=== PATIENT | female | born 1945 | race Caucasian/White ===

== ENCOUNTER → 2016-11-30 | Outpatient (CLI) | payer OTHER, MEDICAID | LOC: FIMAGING 11:05 | PROVIDERS: ATTEND Physician Assistant | DX: R10.9 Unspecified abdominal pain (principal) ==

== ENCOUNTER → 2017-06-18 | Outpatient (CLI) | payer OTHER, MEDICAID | LOC: FIMAGING 12:48 | PROVIDERS: ATTEND Internal Medicine | DX: M16.12 Unilateral primary osteoarthritis, left hip (principal) ==

== ENCOUNTER → 2017-07-29 | Outpatient (CLI) | payer OTHER, MEDICAID | LOC: FIMAGING 10:58 | PROVIDERS: ATTEND Nurse Practitioner Adult Health | DX: Z01.818 Encounter for other preprocedural examination (principal); J44.9 Chronic obstructive pulmonary disease, unspecified; J45.909 Unspecified asthma, uncomplicated; I10 Essential (primary) hypertension ==

== ENCOUNTER → 2017-07-29 | Outpatient (CLI) | payer OTHER, MEDICAID | LOC: FIMAGING 15:22 | PROVIDERS: ATTEND Orthopaedic Surgery | DX: Z01.818 Encounter for other preprocedural examination (principal); M16.0 Bilateral primary osteoarthritis of hip ==

== ENCOUNTER 2017-07-30 11:09 | Inpatient (IN) | payer OTHER, MEDICAID ==
[2017-08-06] MEDS ORDERED: TRANEXAMIC ACID 1,000 MG in NS 100 ML IV ONE (06:00)
[2017-08-06] MEDS ORDERED: ROPIVACAINE 0.2% 80 MG, EPINEPHrine 0.2 MG, KETOROLAC TROMETHAMINE 30 MG in SYRINGE 0 ML IU ONE (06:00)
[2017-08-06] MEDS ORDERED: ceFAZolin 1 GM/5 ML SYR ONE (10:23)
[2017-08-06] MEDS ORDERED: FAMOTIDINE 20 MG TAB PO ONE (13:08)
[2017-08-06] MEDS ORDERED: POVIDONE-IODINE 20 ML in SODIUM CL IRRIG SOLUTION 500 ML IRR ONE (13:08)
[2017-08-06] MEDS ORDERED: DEXAMETHASONE 4 MG/ML VIAL IVP ONE (13:08)
[2017-08-06] MEDS ORDERED: ceFAZolin 2 GM/SWFI 2 GM/20 ML SYR IVP ONE (13:08)
[2017-08-06] MEDS ORDERED: ACETAMINOPHEN 325 MG TAB PO ONE (13:08)
[2017-08-06] MEDS ORDERED: LIDOCAINE 1% 2 ML INJ ID PRN (13:19)
[2017-08-06] MEDS ORDERED: LR 1,000 ML IV ONE (13:19)
--- NOTE | 2017-08-06 14:04 | PDHPUP ---
History & Physical Update H&P update statement: This history and physical update is based on an assessment of the patient which was completed after admission or registration (within 24 hours), but prior to the surgery/procedure. H&P update: H&P reviewed & patient examined, no change in patient's condition since H&P completed
[2017-08-06] MEDS ORDERED: MIDAZOLAM 2 MG/2 ML VIAL IVP ONE (14:29)
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
[2017-08-06] MEDS ORDERED: PROPOFOL/EMULSION 500 MG/50 ML BOTTLE IV ONE ×3 (14:34→18:14)
[2017-08-06] MEDS ORDERED: LIDOCAINE 2% 5 ML SDV ONE (14:35)
[2017-08-06] MEDS ORDERED: BUPIVACAINE/EPI 0.5% 30 ML SDV ONE (15:20)
[2017-08-06] MEDS ORDERED: NALOXONE HCL 0.4 MG/ML INJ IVP PRN (15:22)
[2017-08-06] MEDS ORDERED: ONDANSETRON 4 MG/2 ML VIAL IVP PRN ×2 (15:22→18:53)
[2017-08-06] MEDS ORDERED: PHENYLEPHRINE HCL 100 MCG/ML SYR ONE (16:16)
[2017-08-06] MEDS ORDERED: fentaNYL 100 MCG/2 ML INJ ONE ×2 (18:14→18:53)
[2017-08-06] MEDS ORDERED: MEPERIDINE 25 MG/ML SYR IVP ONE (18:45)
--- NOTE | 2017-08-06 18:45 | POSTANESTH ---
Post Anesthetic Evaluation Cardiovascular Status: Normal, Stable Respiratory Status: Normal, Stable Level of Consciousness/Mental Status: Can Participate in Eval Pain Control: Adequate, Prn Tx Ordered Nausea/Vomiting Control: Adequate, Prn Tx Ordered Complications Possibly Related to Anesthesia: None Noted
[2017-08-06] MEDS ORDERED: MAGNESIUM HYDROXIDE 30 ML UDCUP PO PRN (18:53)
[2017-08-06] MEDS ORDERED: TEMAZEPAM 15 MG CAP PO PRN (18:53)
[2017-08-06] MEDS ORDERED: PROMETHAZINE HCL 25 MG SUPPR PR PRN (18:53)
[2017-08-06] MEDS ORDERED: METOCLOPRAMIDE 10 MG/2 ML VIAL IVP PRN (18:53)
[2017-08-06] MEDS ORDERED: HYDROmorphONE/DILAUDID 1 MG/ML INJ ONE (18:53)
[2017-08-06] MEDS ORDERED: PROMETHAZINE HCL 25 MG/ML INJ IVP PRN (18:53)
[2017-08-06] MEDS ORDERED: MEPERIDINE 25 MG/ML SYR ONE (18:53)
[2017-08-06] MEDS ORDERED: BISACODYL 10 MG SUPP PR PRN (18:53)
[2017-08-06] MEDS ORDERED: DIPHENOXYLATE/ATROPINE LOMOTIL 1 TAB PO PRN (18:53)
[2017-08-06] MEDS ORDERED: diphenhydrAMINE 25 MG CAP PO PRN (18:53)
[2017-08-06] MEDS ORDERED: LACTULOSE 20 GM/30 ML UDCUP PO PRN (18:53)
[2017-08-06] MEDS ORDERED: CYCLOBENZAPRINE 10 MG TAB PO PRN (18:53)
[2017-08-06] MEDS ORDERED: ONDANSETRON DISINTEGRATING 4 MG TAB PO PRN (18:53)
[2017-08-06] MEDS ORDERED: POLYETHYLENE GLYCOL 3350 17 GM PKT PO PRN (18:53)
--- NOTE | 2017-08-06 18:53 | POSTOPPROG ---
Post Op Note Date of Operation: 08/06/17 Surgeon: Alonzo Alford Welder Gas: Stevie Lara Anesthesiologist: Micheal Yang Pre-op Diagnosis: Left hip DJD, Gluteus medius tear Post-op Diagnosis: same Procedure: Left posterior approach PARDEEP PABLO with gluteus medius repair Inf/Abcess present in the surg proc area at time of surgery?: No EBL: 100-500 Complications: none Drains: Hemovac
[2017-08-06] MEDS: fentaNYL 100 MCG/2 ML INJ IVP PRN ×2 (18:57→19:44)
[2017-08-06] MEDS ORDERED: ALPRAZolam 0.5 MG TAB PO PRN (18:58)
[2017-08-06] MEDS ORDERED: LR 1,000 ML IV SCH (19:00)
[2017-08-06] MEDS: HYDROmorphONE/DILAUDID 1 MG/ML INJ IVP PRN ×3 (19:06→20:04)
[2017-08-06] MEDS: SENNOSIDES/DOCUSATE SODIUM TAB PO SCH (21:32)
[2017-08-06] MEDS: oxyCODONE IR 5 MG TAB PO PRN (21:33)
[2017-08-06] MEDS: FAMOTIDINE 20 MG TAB PO SCH (21:33)
[2017-08-06] MEDS: ACETAMINOPHEN 325 MG TAB PO SCH (23:27)
[2017-08-06] MEDS: ceFAZolin 2 GM/DEXTROSE 100 ML IV SCH (23:28)
[2017-08-07] MEDS: oxyCODONE IR 5 MG TAB PO PRN ×4 (03:49→15:42)
--- NOTE | 2017-08-07 05:03 | GOP ---
[f rep st] OPERATIVE REPORT DATE OF OPERATION: 08/06/2017 SURGEON: Alonzo Alford MD ENGINEER CONDUCTOR: Stevie Lara CFA. Road Train Driver was required due to the complexity of the case and the patient's condition for positioning, prepping, draping, retraction, and closure. ANESTHESIA: Spinal. PREOPERATIVE DIAGNOSIS: Left hip osteoarthritis. POSTOPERATIVE DIAGNOSIS: Left hip osteoarthritis. PROCEDURE PERFORMED: Left posterior approach to total hip arthroplasty with Uriel robot guidance and gluteus medius repair. FINDINGS: SPECIMENS: None. ESTIMATED BLOOD LOSS: 400 cc. INDICATIONS: Hip osteoarthritis. After a discussion involving available approaches, the patient elected Uriel robotic-assisted hip replacement through a posterior approach and was aware of a possible gluteus medius repair and restrictions afterward. The patient verbalized understanding of the risks and benefits of the procedure and signed informed consent prior to the procedure. DESCRIPTION OF PROCEDURE: The patient was seen in the holding area. Operative site was signed. The patient was taken to the operating room. Smooth induction of anesthesia. She was placed in a lateral decubitus position, affected hip was facing up, using a peg board and axillary roll, the affected hip was prepped and draped in the usual sterile fashion. Operative site was confirmed by signature. Operative time-out performed. Allergies reviewed and antibiotics administered. Through a percutaneous approach over the iliac crest, 3 pins were placed in the ilium between the inner and outer talus. The pelvis array was attached and registered. A longitudinal incision was made, centered over the posterior third of the greater trochanter. This was carried down through the subcutaneous tissue to identify the fascia papa, which was incised in line with the incision, and gluteus gavin was bluntly split. The trochanteric bursa was then taken down using Bovie. The full thickness gluteus medius tear was identified. The short external rotators were put on stretch and short external rotators and T-shaped capsulotomy were taken in layers from their insertion on the femur and tagged with #2 Ethibond and FiberWire. Quadratus femoris was partially released. Guidance of the Health Plotter robot templated neck cut was made. The head was excised. Acetabulum was exposed in the standard fashion. The labrum was sharply excised. The ligamentum teres and acetabular fossa were excised using Bovie. The transverse acetabular ligament was also partially excised. Pelvic checkpoint was attached and the acetabulum was registered using the Uriel robotic arm. Sequential reaming was performed on templated positioning. The appropriate sized implant was then impacted into place with the robotic arm to guide version and inclination and seemed to have excellent secure fit. The hole cover was screwed into place. The cup was irrigated and dried, and the liner was locked into place. The femur was then exposed in standard fashion. Excess soft tissue was removed from the piriformis fossa using Bovie and excess neck was removed using box osteotomes. Sequential broaching was performed up to the desired sized broach, which had good fit and fill. A trial neck and stem were attached and anteversion, length, and offset were calculated using the Uriel system and seemed to be as planned. Trial femoral components were then removed. Femoral broach was reinserted. Trial neck and head were attached. The hip was relocated and combined version, length, and offset were again calculated using the Health Plotter robot. Again, to be seen as planned, the hip was taken through a range of motion and seemed to be stable in flexion, internal rotation, adduction , as well as extension external rotation. Trial components were removed from the femur, instead implant was impacted into place. The Shanice was cleaned and dried, the head was impacted onto the Shanice, and the wound was copiously irrigated with sterile solution and pulse lavage, including a cup, and the hip was relocated, once again taken through range of motion, and seemed to be stable in all above motions. The array pins, screws, and checkpoints were removed. Capsule and external rotators repaired through 2 drill holes in the greater trochanter, quadratus femoris. Next, the gluteus medius was addressed. A MiTurno TPS round bur was used to decorticate the bulb area of the greater trochanter. Two commercial real estate assistant holes were placed into the greater trochanter, aiming away from the femoral stem using an awl and two 4.75 Arthrex SwiveLock with fiber tape were placed into the greater trochanter. The #2 FiberWire included in the SwiveLock and the tapes were then placed through each leaflet of the U- shaped tear of the gluteus medius and sequentially tied down. Good and stable reduction was achieved. The soft tissues were infiltrated with a cocktail of 50 cc of 0.25% Marcaine with epinephrine, saline, Toradol. A drain was then placed, exiting distally from beneath the fascia papa. The wound was then closed in layers with #2 PDS closed suture in the fascia paap, 0 PDS closed suture in the deep subcutaneous fat, and 3-0 Monocryl suture in the dermis. Dermabond and Steri-Strips were then applied, as well as a Mepilex silver line dressing. Leg was then placed into a hip abduction pillow and a hip abduction brace to protect the gluteus medius repair. The patient was then safely awakened and taken to the recovery room in stable condition. All critical portions of the procedure were performed by myself, Dr. Alford, this operative note was created by myself, Dr. Alford, and I was immediately available for emergency cross-coverage at all times. DRAINS: One Hemovac. COMPLICATIONS: None. IMPLANTS: Shanice 52 mm cup, Accolade II stem size 5, offset 127 degrees, and 32mm, -4 ceramic head, polyethylene liner, also Arthrex 4.75 mm SwiveLock x2 with fiber tape. /[id number]/MODL MTDD
[2017-08-07 05:08] LABS: HEMATOCRIT 37.6 % (38.0-47.0); HEMOGLOBIN 12.7 g/dL (12.6-16.3)
[2017-08-07] MEDS: ACETAMINOPHEN 325 MG TAB PO SCH ×2 (06:16→11:55)
[2017-08-07] MEDS: ceFAZolin 2 GM/DEXTROSE 100 ML IV SCH (06:17)
[2017-08-07] MEDS: FAMOTIDINE 20 MG TAB PO SCH (08:19)
[2017-08-07] MEDS: SENNOSIDES/DOCUSATE SODIUM TAB PO SCH (08:22)
[2017-08-07] MEDS ORDERED: LISINOPRIL 5 MG TAB PO SCH (09:00)
[2017-08-07] MEDS ORDERED: ENOXAPARIN 40 MG/0.4 ML SYR SC SCH (09:00)
[2017-08-07] MEDS ORDERED: HYDROCHLOROTHIAZIDE 25 MG TAB PO SCH (09:00)
--- NOTE | 2017-08-07 09:03 | SOAPPROG ---
SOAP Progress Note Assessment/Plan: Assessment:71F POD#1 s/p L hip posterior approach PARDEEP PABLO with gluteus medius repair. Plan: - 20lb Footflat WB x6wks in hip brace. Up as tolerated with assistance, PT/OT - Lovenox for DVT prophylaxis - IS 10x/hr - Pain control upon d/c per primary MD - on chronic oxy - Medically stable for d/c today but will require acute rehab vs home health/PT - Dispo pending. 08/07/17 09:00 Subjective: No acute events overnight. Pain controlled and improving. Denies f/c/cp/sob/n/v/ numbness/tingling. Up with assistance last night. Objective: Vital Signs Temp Pulse Resp BP Pulse Ox 36.3 C 72 16 119/84 H 91 L 08/07/17 08:00 08/07/17 08:00 08/07/17 08:00 08/07/17 08:00 08/07/17 08:00 Laboratory Results 08/07/17 04:47 08/06/17 08/07/17 08/08/17 05:59 05:59 05:59 Intake Total 1860 600 Output Total 1140 Balance 720 600 AAOx3,NAD Easy non-labored breathing LLE: dressing c/d/i Drain removed Minimal swelling calf soft/nontender SILT L3-S1 Motor intact EHL/FHL/TA/GSC 2+DP/PT, BCR - Time Spent With Patient Time Spent With Patient: 15mins - Pending Discharge Pending Discharge Within 24 Hours: Yes Pending Discharge Within 48 Hours: Yes Pending Discharge Date: 08/08/17 Pending Discharge Time: 11:00 ICD10 Worksheet Patient Problems: Problems Problem Status Onset Osteoarthritis of left hip Acute
--- NOTE | 2017-08-07 15:04 | PDIAF ---
- Diagnosis Code Status: Full Code - Medication Management Discharge Medications: Medications to Continue on Transfer ALPRAZolam [Xanax 0.5 MG (*)] 0.5 mg PO TID PRN 07/15/17 [Last Taken 08/05/17] Fluticasone Nasal [Flonase Nasal [place]] 1 sprays NASAL DAILY PRN 07/15/17 [Last Taken 08/06/17 08:00] Hydrochlorothiazide [HCTZ (*)] 25 mg PO DAILY 07/15/17 [Last Taken 08/05/17] Lisinopril [Zestril 5 mg (*)] 5 mg PO DAILY 07/15/17 [Last Taken 08/05/17] diphenhydrAMINE [Benadryl 25 MG (*)] 50 mg PO HS 07/15/17 [Last Taken 08/05/17] oxyCODONE IR [Oxycodone Ir (*)] 10 mg PO Q6HRS PRN 07/15/17 [Last Taken 10:30] traZODone [traZODone 150MG (*)] 300 mg PO HS 07/15/17 [Last Taken 08/05/17] Acetaminophen [Tylenol 325mg (*)] 650 mg PO Q6HRS tab 08/07/17 [Last Taken Unknown] Beclomethasone Qvar 80 [Qvar 80 (*)] 2 puffs IH DAILY 08/07/17 [Last Taken 08/07] Enoxaparin [Lovenox 40 MG (*)] 40 mg SC DAILY #14 syr 08/07/17 [Last Taken Unknown] Sennosides/Docusate Sodium [Senokot-S] 1 - 2 tab PO BID tab 08/07/17 [Last Taken Unknown] Discharge Medications: Refer to the Discharge Home Medication list for PRN reason. - Orders Services needed: Physical Therapy, Occupational Therapy Diet Recommendation: no restrictions on diet Diet Texture: Regular Texture Diet Activity/Weight Bearing Restrictions: 20lb foot flat WB x6wk with hip brace Additional: After Lovenox is completed, start ASA 325mg BID for 2 wks. Pt has precription for it - Follow Up Care Current Providers and Referrals: Miller Ford MD [Primary Care Provider] - Alonzo Alford MD [Medical Doctor] - 08/21/17
[2017-08-07 15:19] VITALS: PULSE 74; RESP 16; TEMP 99.5; O2SAT 91
[2017-08-07 15:50] VITALS: BP 166/85
--- NOTE | 2017-08-07 16:55 | ASMTCMCOM ---
CM Note CM Note Notes: PT rec SNF and pt agreeable, considers [facility] locations only, [facility] and [facility]. [facility] has no bed availability. Pt accepted at [facility], orders sent in [employer]. [place] with [facility] scheduled wc van transport for 16:30. Date Signed: 08/07/2017 04:55 PM Electronically Signed By:DARYL Nevarez
--- NOTE | 2017-08-07 16:56 | ASDISCHSUM ---
Discharge Information Plan Status:SNF Medically Cleared to Leave: Discharge Date:08/07/2017 04:43 PM D/C Disposition:Jail Facility ADT D/C Disposition:Jail Facility Projected Discharge Date:08/07/2017 11:00 AM Transportation at D/C: Discharge Delay Reason: Follow-Up Date:08/07/2017 11:00 AM Discharge Slot: Final Diagnosis: Placement Information Referral Type:*[facility]p/SNF Referral ID:[id number] Provider Name:[facility] Address 1:[address] Address 2: City:[place] Selection Factors: State:[place] Patient Contact Information Contact Name:JEMAL Relationship:Other Address:[address] City:[place] Alternate Phone: State/Zip Code:[place] [address] Email: Financial Information Financial Class: Primary Plan Desc:MEDICARE INPATIENT Primary Plan Number:[id number] Secondary Plan Desc:MEDICAID [place] Secondary Plan Number:[id number] Assessment Information [facility] CM Progress Note CM Note CM Note Notes: PT rec SNF and pt agreeable, considers [facility] locations only, [facility] and [facility]. [facility] no bed availability. [facility] for 16:30. Date Signed: 08/07/2017 04:55 PM Electronically Signed By:DARYL Nevarez Intervention Information
--- NOTE | 2017-08-09 02:58 | GDS ---
[f rep st] DISCHARGE SUMMARY ADMITTING DIAGNOSIS: Left hip posttraumatic arthritis and gluteus medius tear. POSTOPERATIVE DIAGNOSIS: Left hip posttraumatic arthritis and gluteus medius tear. PROCEDURE PERFORMED: A left hip posterior approach hip replacement with Uriel robotic guidance and as well as repair of full-thickness gluteus medius tear. CONSULTATIONS: Physical and Occupational Therapy, as well as Case Management. HOSPITAL COURSE: Patient was admitted on August 06, 2017, underwent the above procedure without co mplication. Pain was well controlled postoperatively. She was administered Lovenox for DVT prophyla xis and participated in physical and occupational therapy. Perioperative antibiotics were administer ed. On postop day 1, she was deemed safe for discharge to a [facility] facility with acute rehab ilitation. Patient received analgesic medications from her primary care provider as she is on chroni c narcotics. She was provided with Lovenox, aspirin, and Colace, however, for DVT prophylaxis and st ool softeners. DISCHARGE DISPOSITION: detention facility. CONDITION UPON DISCHARGE: Stable. FOLLOWUP: Patient has a follow-up date of August 21, 2017. She understands and agrees. Questions answered. /[id number]/MODL
== END 2017-08-07 16:43 | DRG 470 ==
LOC: F3E 08-06 12:51 → F3N 08-06 18:07
PROVIDERS: ADMIT Orthopaedic Surgery; ATTEND Orthopaedic Surgery
PROC: 0SRB04A Replacement of Left Hip Joint with Ceramic on Polyethylene Synthetic Substitute, Uncemented, Open Approach (ICD-10-PCS; principal; 2017-08-06 14:30)
PROC: 8E0Y0CZ Robotic Assisted Procedure of Lower Extremity, Open Approach (ICD-10-PCS; principal; 2017-08-06 14:30)
DX: M12.552 Traumatic arthropathy, left hip (principal); M70.852 Other soft tissue disorders related to use, overuse and pressure, left thigh; J44.9 Chronic obstructive pulmonary disease, unspecified; Z87.891 Personal history of nicotine dependence; E78.5 Hyperlipidemia, unspecified; I10 Essential (primary) hypertension; G47.33 Obstructive sleep apnea (adult) (pediatric)
CPT/HCPCS: 97116-GP; 97161-GP; 97166-GO; C1713; G8978-GP-CK; G8979-GP-CI; G8987-GO-CL; G8988-GO-CJ; J0171; J0690; J1100; J1170; J1650; J1885; J2370; J2704; J2795; J3010